=== PATIENT | female | born 2005 | race Caucasian/White ===

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

== ENCOUNTER 2025-01-29 20:32 | Emergency (ER) | payer OTHER, SELFPAY ==
--- OUTSIDE RECORDS SUMMARY | 2021-09-03 01:40 | XMS_ITS | Continuity of Care Document ---
Author Organization [facility] Address [address] [address] [place] [address] Phone Care Team Providers Care Ux Information Architect Name Role Phone Bran Almanza MD Unavailable Unavaila ble Allergies, Adverse Reactions, Alerts Substance Reaction Status Criticality No Known Allergies Active No Inform ation Medications Medication Instructions Dosage Effective Dates (start - stop) Status Comments famotidine 40 mg tablet take 1 tablet by oral route every day at bedtime 40 MG - Active ondansetron 4 mg disintegrating tablet take 1 tablet by ORAL route every 8 hours for [address] on top of the tongue where it will dissolve, then swallow 4 MG - Active Procedures Procedure Date New Level 4 Advance Directives Directive Yes / No Effective Date File Name No Information Encounters Encounter Description Practice Location Reason(s) For Visit Diagnoses Date Provider Providers Copied on Encounter [facility], [address] [address], [place], [id number], [place] tel:[phone] [facility] No Information 2 Cami castillo [address] [facility], [address], [place], [id number] , [place]. tel:[phone] [facility], [address] [address], [place], [id number], [place] tel:[phone] [facility] Abdominal pain, unspecified abdominal locationAltered bowel habits 2 Cami salinas. [address] [facility], [facility] [address], [facility] [place], [id number] , [place]. tel:[phone] New Level 4 [facility], [address] [address], [place], [id number], [place] tel:[phone] [facility] GI Symptoms or Concerns (chief complaint) Abdominal pain, unspecified abdominal locationNauseaAlt ered bowel habits 2 Cami salinas. [address] [facility] [address], [facility] [place], [address] , [place]. tel:[phone] Referring Provider: Jimena June DO, [address] [place] [address], [address]. tel:[phone] [facility], [address] [address], [place], [id number], [place] tel:[phone] [facility] No Information 2 Wade Doonvan. [address] [facility] [address], [facility] [place], [id number] , [place]. tel: [phone] Family History Family Member Type Diagnosis Age At Onset No Information Immunizations Vaccine Date Status Comments Human Papillomavirus 9-eliza t vaccine administered Note: [facility] bi-direct ional interface ; Source: Other Registry Afluria Qd administered Note: M [facility] bi-directional interface ; Source: Other Registry Human Papillomavirus 9-eliza t vaccine administered Note: [facility] bi-direct ional interface ; Source: Other Registry tetanus toxoid, reduced diphtheria toxoid, and acellular pertussis vaccine, adsorbed administered Note: [facility] b i-directional interface ; Source: Other Registry meningococcal oligosaccharid e (groups A, C, Y and W-135) diphtheria toxoid conjugate vaccine (MCV4O) administered Note: [facility] bi-direct ional interface ; Source: Other Registry varicella virus vaccine administered Note : [facility] bi-directional interface ; Source: Other Registry Diphtheria, tetanus toxoids and acellular pertussis vaccine, and poliovirus vaccine, inactivated administered Note: [place] IC bi- directional interface ; Source: Other Registry measles, mumps and rubella v irus vaccine administered Note: [facility] bi-direct ional interface ; Source: Other Registry Havrix pediatric administered Note: [facility] bi-directional interface ; Source: Other Registry diphtheria, tetanus toxoids and acellular pertussis vaccine administered Note: [facility] b i-directional interface ; Source: Other Registry Havrix pediatric administered Note: [facility] bi-directional interface ; Source: Other Registry measles, mumps, rubella, and varicella virus vaccine administered Note: [facility] bi-di rectional interface ; Source: Other Registry Pneumovax administered Note: [facility] bi-d irectional interface ; Source: Other Registry DTaP-hepatitis B and poliovi skylar vaccine administered Note: [facility] bi-direct ional interface ; Source: Other Registry Pneumovax administered Note: [facility] bi-d irectional interface ; Source: Other Registry Haemophilus influenzae type b vaccine, PRP-OMP conjugate administered Note: [facility] bi -directional interface ; Source: Other Registry DTaP-hepatitis B and poliovi skylar vaccine administered Note: [facility] bi-direct ional interface ; Source: Other Registry Pneumovax administered Note: [facility] bi-d irectional interface ; Source: Other Registry Haemophilus influenzae type b vaccine, PRP-OMP conjugate administered Note: [facility] bi -directional interface ; Source: Other Registry DTaP-hepatitis B and poliovi skylar vaccine administered Note: [facility] bi-direct ional interface ; Source: Other Registry Payers Payer name Insurance type Covered green party ID Authoriza tion(s) R CI [id number] Social History Type Description Quantity Date Captured Comments Sex Female Smoking Status No Information Chief Complaint And Reason For Visit No Information Reason For Referral Reason For Referral No Information Plan Of Treatment Date Type Action Status Referral Ordered: Calprotectin, Fecal Appointment date/timeframe: 07/19/2021 ordered Referral Ordered: Celiac: DGP IgA/G + TTG +IgA Appointment date/timeframe: 07/19/2021 ordered History Of Present Illness Encounter Date Complaint History Of Prese nt Illness GI Symptoms or Concerns This is a virtual consult on 16-year-old young lady with history of chronic abdominal pain, nausea, and altered bowel habits for evaluation. Consult requested by Jimena June from [facility]. 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 She has been struggling with chronic intermittent abdominal pain, nausea, and altered bowel habit since January 2021. She often wakes up in the morning with pressure like sensation in the left side of the abdomen. On leading questions, she localizes the discomfort to left upper quadrant associated with nausea and occasional vomiting. Her symptom gets worse with eating any food with loss of appetite and weight loss of approximately 10 pounds. She reports nausea, occasional gagging and weird taste in the back of her throat. There is no history of dysphagia. Her bowel movements are twice a day. She identifies Wilcox stool scale of 1 to 4 as the stool consiste Functional Status Date Functional Assessmen t No Information Instructions Date Instruction Additional Infor danyel 1. Various options w ere discussed. La will discuss with mother and call us with her preference.2. For now, she wanted to fax the prescription of ondansetron 4 mg p.r.n. every 6 hours was faxed.3. She could use famotidine 40 mg daily or Nexium 40 mg once a day to control gastritis/possible NSAID-induced gastropathy.4. To consider checking stool for calprotectin and occult blood. Calprotectin is sensitive marker for inflammatory bowel disease.5. Offered to arrange esophagogastroduodenoscopy and colonoscopy with biopsy to rule out mucosal lesions.6. Her symptoms could also be due to gastroparesis, could consider either cyproheptadine 4 mg twice daily or azithromycin 125 mg daily as a gastrokinetic agent.7. Follow up in 1 to 2 months, ideally in-person.8. Diet and lifestyle changes for acid peptic disorder was discussed. Related to Abdominal pain, unspecified abdominal location Assessments Type Assessment Date No Information Patient Care Teams Name Effective Dates (start - stop) Status Members No Information
--- OUTSIDE RECORDS SUMMARY | 2021-09-03 01:40 | XMS_ITS | Continuity of Care Document ---
Author Organization [facility] Address [address] [address] [place] [address] Phone Care Team Providers Care Field Sales Agent Name Role Phone Bran Almanza MD Unavailable [...] Encounter [facility], [address] [address], [place], [id number], [place] tel:[phone] [facility] No Information 2 Cami castillo [address] [facility], [address], [place], [id number] , [place]. tel:[phone] [facility], [address] [address], [place], [id number], [place] tel:[phone] [facility] Abdominal pain, unspecified abdominal locationAltered bowel habits 2 Cami salinas. [address] [facility], [facility] [address], [facility] [place], [id number] , [place]. tel:[phone] New Level 4 [facility], [address] [address], [place], [id number], [place] tel:[phone] [facility] GI Symptoms or Concerns (chief complaint) Abdominal pain, unspecified abdominal locationNauseaAlt ered bowel habits 2 Cami salinas. [address] [facility] [address], [facility] [place], [id number] , [place]. tel:[phone] Referring Provider: Jimena June DO, [address] [place] [address], [address]. tel:[phone] [facility], [address] [address], [place], [id number], [place] tel:[phone] [facility] No Information 2 Wade Donovan. [address] [facility] [address], [facility] [place], [id number] , [place]. tel: [phone] Family History Family Member Type Diagnosis Age [...] vaccine, and poliovirus vaccine, inactivated administered Note: [place] IC bi- directional interface ; Source: Other [...] Registry Payers Payer name Insurance type Covered constitution party ID Authoriza tion(s) R CI [id number] Social History Type Description Quantity Date Captured [...] evaluation. Consult requested by Jimena June from [facility]. La attended the virtual visit alone.La is [...] movements are twice a day. She identifies Roberts stool scale of 1 to 4 as [...]
[2025-01-29 20:37] VITALS: BP 111/75; PULSE 96; RESP 16; TEMP 36.6; O2SAT 100; BMI 17.9
--- NOTE | 2025-01-29 21:29 | ED_ITS ---
HPI - GI Bleed General Chief complaint: GI Bleed Stated complaint: blood in stool Time Seen by Provider: 01/29/25 20:44 History of Present Illness HPI Narrative: This 20-year-old female comes in reporting bright red blood per rectum that began yesterday. She also had some nausea and vomiting. She did not vomit any blood. She does not report any fevers. She does have some mild lower abdominal pain. She has had abdominal pains several years ago that were rather frequent and she did have a CT scan about for 5 years ago with normal results. She denies having any recent antibiotic treatment. She has not had any recent travel. She has not had blood in her stool like this in the past. She does report a strong family history of various autoimmune conditions. Related Data Home Medications ?Medication ?Instructions ?Recorded ?Confirmed oxybutynin chloride 10 mg 10 mg PO QDAY 08/14/23 tablet,extended release 24 hr Previous Rx's ?Medication ?Instructions ?Recorded isotretinoin 40 mg capsule 40 mg PO BID #60 caps 05/22 Allergies Allergy/AdvReac Type Severity Reaction Status Date / Time succinylcholine Allergy Severe coma Verified 07/18/23 14:13 Review of Systems Status of ROS: Reports: 10 or more systems reviewed and unremarkable except as noted in History and below Narrative: Constitutional: No fevers, no weight gain or loss. Eyes: No discharge. No vision changes. HENT: No congestion, no sore throat, no ear pain. Cardiovascular: No chest pain, no palpitations. Respiratory: No shortness of breath, no wheezes, no cough. Gastrointestinal: Lower abdominal pain and bright red blood per rectum. Genitourinary: No dysuria, no hematuria. Musculoskeletal: Normal range of motion. Skin: No rashes, no pruritis. Neurological: No dizziness, weakness, sensory change, speech change. Endo/Heme/Allergies: No bruising or bleeding. No polydipsia. Pysch: no suicidality, no anxiety, no insomnia. All other systems reviewed and are negative. [facility] Medical History (Updated 01/29/25 @ 22:48 by Duy Camejo MD) Otitis media (12/07/12) ?H66.90 - Otitis media, unspecified, unspecified ear (ICD-10) Vulvar skin tag ?N90.89 - Other specified noninflammatory disorders of vulva and perineum (ICD-10) Urinary tract infection ?N39.0 - Urinary tract infection, site not specified (ICD-10) Suprcondyl fx humerus-closed (01/17/11) ?S42.413A - Displaced simple supracondylar fracture without intercondylar fracture of unspecified humerus, initial encounter for closed fracture (ICD- 10) Elbow fracture (11/20/10) ?S42.409A - Unspecified fracture of lower end of unspecified humerus, initial encounter for closed fracture (ICD-10) Surgical History (Updated 04/09/23 @ 15:10 by Lisseth Jansen PA-C) 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, unspecified (ICD-10) Broken arm ?S42.309A - Unspecified fracture of shaft of humerus, unspecified arm, initial encounter for closed fracture (ICD-10) H/O wisdom tooth extraction ?K08.409 - Partial loss of teeth, unspecified cause, unspecified class (ICD- 10) Family History (Updated 03/07/22 @ 17:21 by Anais Allan, [facility]) Family/Other Stroke Osteoporosis Mother Thyroid disease High blood pressure Brother Bleeding disorder Social History (Updated 04/09/23 @ 16:03 by Chayo Morales ~ [facility]) What is your current living situation?: I presently have a place to live Problems where you live: no known problems In the past 12 months, utilities in danger of being shut off: no In past 12 months, lack of transportation kept you from medical appts, meetings, work, or getting things needed for daily living: no In the past 12 mos, have been you worried that your food would run out before you had money to buy more?: never true In the past 12 mos, the food you bought just didn't last and you didn't have money to buy more?: never true Smoking Status: Never smoker How often do you have a drink containing alcohol: never AUDIT-C Alcohol total score: 0 Non-prescribed substance use: denies use Caffeine: Yes How often does anyone, including family, friends and others, physically hurt you : never How often does anyone, including family, friends and others, insult or talk down to you: never How often does anyone, including family, friends and others, threaten you with harm: never How often does anyone, including family, friends and others, scream or curse at you: never Are you using contraception or practicing any form of control: Yes Exam Narrative: Exam Narrative: Constitutional: Well-developed, well-nourished, no acute distress. HEENT: Normocephalic, atraumatic. Neck: Normal range of motion. Nontender. Supple. Heart: Regular. No murmurs. Normal rate. Intact distal pulses. Lungs: Clear to auscultation. No chest discomfort. No wheezes, rhonchi, or rales. Abdomen: Normal bowel sounds. Mild tenderness in the lower abdomen. No rebound tenderness. Genitalia: Deferred. Back: No midline tenderness. Normal range of motion. Extremities: Normal range of motion. No injury. Skin: Intact. No rash. Warm. No erythema or pallor. Neurologic: No altered sensation. No weakness. Alert and oriented. Psychiatric: No suicidality. No anxiety or depression. No insomnia. Nursing notes and vitals signs are reviewed. Const: Vital Signs, click to edit/add: Vital Signs - 24 hr 01/29/25 20:37 Temperature 97.8 F Pulse Rate [Pulse Oximeter] 96 Respiratory Rate 16 Blood Pressure [Ri ght Upper Arm] 111/75 Pulse Oximetry 100 Oxygen Delivery Me thod Room Air Course Vital Signs Vital signs: Initial Vital Signs Temperature 97.8 F 01/29/25 20:37 Temperature Source Temporal Artery Scan 01/29/25 20:37 Pulse Rate 96 01/29/25 20:37 Respiratory Rate 16 01/29/25 20:37 Blood Pressure 111/75 01/29/25 20:37 Blood Pressure Mean 87 01/29/25 20:37 Blood Pressure Position Sitting 01/29/25 20:37 Pulse Oximetry 100 01/29/25 20:37 Oxygen Delivery Method Room Air 01/29/25 20:37 Vital Signs Temperature 97.8 F 01/29/25 20:37 Pulse Rate 96 01/29/25 20:37 Respiratory Rate 16 01/29/25 20:37 Blood Pressure 111/75 01/29/25 20:37 Pulse Oximetry 100 01/29/25 20:37 Oxygen Delivery Method Room Air 01/29/25 20:37 Temperature 97.8 F 01/29/25 20:37 Pulse Rate 96 01/29/25 20:37 Respiratory Rate 16 01/29/25 20:37 Blood Pressure 111/75 01/29/25 20:37 Pulse Oximetry 100 01/29/25 20:37 Oxygen Delivery Method Room Air 01/29/25 20:37 MDM - GI Bleed MDM Narrative Medical decision making narrative: This patient comes in reporting some bright red blood per rectum occurring yesterday in today. She states that she feels normal otherwise except for some mild pain in her lower abdomen. Her exam is rather reassuring as are her vital signs. I did discuss options going forward with the patient and her father. This included imaging and recommendation for colonoscopy or flexible sigmoidoscopy in the future. The patient and her father declined any imaging studies at this time which I am okay with as she does not show symptoms of an acute abdomen. Labs are acquired and these returned with reassuring results. Her white count is normal and hemoglobin is in normal range also. Additionally her sed rate and C-reactive protein are negative. I did advise them regarding signs and symptoms that would indicate need for return and re-evaluation. I recommended follow-up for a scope of the lower GI tract for further evaluation. Lab Data Labs: Lab Results 01/29/25 Range/Units 21:28 WBC 6.82 (4.50-11.00) K/uL RBC 4.61 (4.00-5.20) m/uL Hgb 13.6 (12.0-16.0) gm/dL Hct 37.7 (33.0-51.0) % MCV 82 (80-100) fL MCH 30 (26-34) pg MCHC 36 (32-36) gm/dL RDW Coeff of Faye 11.8 (11.5-15.5) % Plt Count 236 (140-440) K/uL Neut % (Auto) 46.4 (42.0-72.0) % Lymph % (Auto) 46.0 H (20-44) % [place] % (Auto) 7.2 (0.0-11.0) % Eos % (Auto) 0.3 (0.0-7.0) % Baso % (Auto) 0.1 (0.0-3.0) % Neut # (Auto) 3.16 (1.7-7.0) K/uL Lymph # (Auto) 3.10 H (0.90-2.90) K/uL [place] # (Auto) 0.50 (0.00-0.90) K/UL Eos # (Auto) 0.02 (0.00-0.50) K/uL Baso # (Auto) 0.01 (0.00-0.30) K/uL Abs Immat Gran (auto) 0.00 (0.00-0.30) K/uL Imm/Tot Granulo (auto) 0.0 % ESR 2 (2-20) mm/hr C-Reactive Protein < 0.5 L (0.5-1.0) mg/dL Discharge Plan Discharge Clinical Impression: Bright red rectal bleeding Patient Disposition: Home w/ Parent or Adult Condition: Stable Additional Instructions: I recommend using fiber additives to normalize stools. Follow up with MD for colonoscopy or flexible sigmoidoscopy. Return if symptoms are recurrent or worsening. Prescriptions: No Action isotretinoin 40 mg capsule 40 mg PO BID Qty: 60 0RF oxybutynin chloride 10 mg tablet extended release 24hr 10 mg PO QDAY Follow Up/Referrals: Lisseth Jansen PA-C [Primary Care Provider, Family Practice] Stand Alone Forms: MyHealth Info Instructions
[2025-01-29 21:48] LABS: Hematocrit* 37.7 % (33.0-51.0); Hemoglobin* 13.6 gm/dL (12.0-16.0); Immature Granulocytes Abs Auto 0.00 K/uL (0.00-0.30); Immature Granulocytes Pct Auto 0.0 %; Mean Corpuscular HGB Conc 36 gm/dL (32-36); Mean Corpuscular Hemoglobin 30 pg (26-34); Mean Corpuscular Volume 82 fL (80-100); RDW Coefficient of Variation % 11.8 % (11.5-15.5); Red Blood Count* 4.61 m/uL (4.00-5.20); White Blood Count* 6.82 K/uL (4.50-11.00)
[2025-01-29 21:56] LABS: Lymphocytes Absolute Auto 3.10 K/uL (0.90-2.90); Slide Review Reflex No
[2025-01-29 22:28] LABS: Erythrocyte SedimentationRate* 2 mm/hr (2-20)
== END 2025-01-29 22:54 | disposition home or self-care (01) ==
PROVIDERS: Emergency Provider Emergency Medicine Emergency Medical Services; PCP Physician Assistant Medical
DX: K62.5 Hemorrhage of anus and rectum (principal)
CPT/HCPCS: 36415; 85025; 85651; 86140; 99283; 99284